=== PATIENT | female | born 1980 | race Caucasian/White ===

== ENCOUNTER 2016-12-29 09:00 | Inpatient (IN) | payer OTHER ==
[~2016-12-29] VITALS: Ht 165 cm; Wt 77.6 kg
[2016-12-29] MEDS ORDERED: PREN-134 PO (09:11)
[2016-12-29] MEDS ORDERED: RINGERS SOLUTION,LACTATED 1,000 ML IV PRN (09:19)
[2016-12-29] MEDS ORDERED: RINGERS SOLUTION,LACTATED 1,000 ML IV SCH (09:19)
[2016-12-29] MEDS ORDERED: OXYTOCIN 30 UNITS/LACT RINGERS 500 ML IV ONE (09:19)
[2016-12-29 09:24] VITALS: BP 109/72
[2016-12-29] MEDS ORDERED: RINGERS SOLUTION,LACTATED 1,000 ML IV ONE (09:27)
[2016-12-29] MEDS ORDERED: LIDOCAINE HCL/PF 1% 30 ML VIAL INJ PRN (09:30)
[2016-12-29] MEDS ORDERED: CITRIC ACID/SODIUM CITRATE 30 ML SOLUTION UDCUP PO PRN (09:30)
[2016-12-29] MEDS ORDERED: METOCLOPRAMIDE HCL 5 MG/ML 2 ML VIAL IVP PRN (09:30)
[2016-12-29] MEDS ORDERED: FentaNYL CITRATE-PF 100 MCG/2 ML VIAL IVP PRN (09:30)
[2016-12-29] MEDS ORDERED: METHYLERGONOVINE MALEATE 0.2 MG/ML VIAL IM PRN (09:30)
[2016-12-29] MEDS ORDERED: OXYGEN THERAPY IH SCH (09:30)
[2016-12-29 10:07] LABS: BASOPHILS % (AUTO) 0.2 % (0.0-2.0); EOSINOPHILS % (AUTO) 0.5 % (1.0-6.0); LYMPHOCYTES # (AUTO) 1.4 K/uL (1.0-4.8); LYMPHOCYTES % (AUTO) 22.7 % (22.0-44.0); MEAN CORPUSCULAR HEMOGLOBIN 32.8 pg (26.0-34.0); MEAN CORPUSCULAR HGB CONC 34.3 G/dL (31.0-37.0); MEAN CORPUSCULAR VOLUME 96 fL (80-100); MONOCYTES # (AUTO) 0.5 K/uL (0.1-1.0); MONOCYTES % (AUTO) 7.7 % (2.0-9.0); NEUTROPHILS # (AUTO) 4.3 K/uL (1.8-7.7); NEUTROPHILS % (AUTO) 68.9 % (40.0-70.0); RED BLOOD CELL COUNT(AUTO) 3.65 MIL/uL (4.00-5.20); RED CELL DISTRIBUTION WIDTH 14.1 % (11.5-14.5); WHITE BLOOD COUNT (AUTO) 6.2 K/uL (4.5-11.0)
[2016-12-29] MEDS ORDERED: AMPICILLIN SODIUM 2 GM/NS 100 ML IV ONE (11:00)
[2016-12-29] MEDS ORDERED: LIDOCAINE HCL/PF 2% 5 ML VIAL ONE (12:33)
[2016-12-29] MEDS ORDERED: BUPIVACAINE HCL/PF 0.25% 10 ML VIAL ONE (12:33)
[2016-12-29] MEDS ORDERED: FentaNYL/BUPIV 0.125%/NS/PF 200 ML ED ONE (12:34)
[2016-12-29] MEDS ORDERED: FentaNYL/BUPIV 0.125%/NS/PF 200 ML ED PRN (13:42)
[2016-12-29] MEDS ORDERED: NALBUPHINE HCL 10 MG/ML VIAL IVP PRN ×2 (13:45)
[2016-12-29] MEDS ORDERED: DiphenhydrAMINE HCL 50 MG/ML VIAL IVP PRN (13:45)
[2016-12-29] MEDS ORDERED: ONDANSETRON HCL 4 MG/2 ML VIAL IVP PRN (13:45)
[2016-12-29] MEDS ORDERED: PROMETHAZINE HCL 12.5 MG in SODIUM CHLORIDE 0.9% 50 ML IV PRN (13:45)
[2016-12-29] MEDS ORDERED: AMPICILLIN SODIUM 1 GM/NS 50 ML IV SCH (15:00)
[2016-12-29] MEDS ORDERED: OXYTOCIN 20 UNITS/LACT RINGERS 1,000 ML IV SCH (17:16)
[2016-12-29] MEDS ORDERED: SENNA/DOCUSATE SODIUM 187-50 MG TABLET PO PRN (17:30)
[2016-12-29] MEDS ORDERED: BENZOCAINE 20%/MENTHOL 56 GM SPRAY CANISTER TP PRN (17:30)
[2016-12-29] MEDS ORDERED: MEASLES/MUMPS/RUBELLA VACCINE, LIVE 0.5 ML/VIAL SQ ONE (17:30)
[2016-12-29] MEDS ORDERED: GLYCERIN/WITCH HAZEL LEAF 40 PADS JAR TP PRN (17:30)
[2016-12-29] MEDS ORDERED: MAGNESIUM HYDROXIDE SUSPENSION 30 ML UDCUP PO PRN (17:30)
[2016-12-29] MEDS ORDERED: ACETAMINOPHEN/CODEINE 300-30 MG TABLET PO PRN (17:30)
[2016-12-29] MEDS ORDERED: LANOLIN 7 GM OINTMENT TP PRN (17:30)
[2016-12-29] MEDS ORDERED: IBUPROFEN 600 MG TABLET PO PRN (17:30)
[2016-12-29] MEDS ORDERED: EPHEDrine SULFATE 50 MG/ML VIAL IM ONE (17:59)
[2016-12-30 06:19] LABS: BASOPHILS % (AUTO) 0.2 % (0.0-2.0); EOSINOPHILS % (AUTO) 0.3 % (1.0-6.0); HEMATOCRIT 32.4 % (36-46); HEMOGLOBIN 11.1 g/dL (12.0-16.0); LYMPHOCYTES % (AUTO) 19.4 % (22.0-44.0); MEAN CORPUSCULAR HEMOGLOBIN 33.5 pg (26.0-34.0); MEAN CORPUSCULAR HGB CONC 34.2 G/dL (31.0-37.0); MEAN CORPUSCULAR VOLUME 98 fL (80-100); MONOCYTES # (AUTO) 0.7 K/uL (0.1-1.0); NEUTROPHILS # (AUTO) 7.6 K/uL (1.8-7.7); NEUTROPHILS % (AUTO) 73.1 % (40.0-70.0); RED BLOOD CELL COUNT(AUTO) 3.31 MIL/uL (4.00-5.20); WHITE BLOOD COUNT (AUTO) 10.5 K/uL (4.5-11.0)
[2016-12-30] MEDS ORDERED: IBUP-2070 PO (16:34)
[2016-12-30] MEDS ORDERED: DSS100 PO (16:38)
[2016-12-30] MEDS ORDERED: FERR-89 PO (16:40)
[2016-12-30] MEDS ORDERED: PHENYLEPHRINE HCL 10 MG/ML VIAL IVP ONE (17:59)
== END 2016-12-30 18:00 | disposition home or self-care (01) | DRG 775 ==
LOC: 4S 09:00 → OBSVTOIN 09:00
PROVIDERS: ADMIT Obstetrics & Gynecology; ATTEND Obstetrics & Gynecology
PROC: 10E0XZZ Delivery of Products of Conception, External Approach (ICD-10-PCS; principal; 2016-12-29)
PROC: 3E0S3CZ (ICD-10-PCS; 2016-12-29)
PROC: 00HU33Z Insertion of Infusion Device into Spinal Canal, Percutaneous Approach (ICD-10-PCS; 2016-12-29)
DX: O75.89 Other specified complications of labor and delivery (principal); Z37.0 Single live birth; O09.523 Supervision of elderly multigravida, third trimester; Z3A.38 38 weeks gestation of pregnancy
CPT/HCPCS: 86850; 86900; 86901; J0290; J2370; J2590; J3490; J7120